=== PATIENT | male | born 2000 | race Caucasian/White ===

== ENCOUNTER 2020-05-14 01:59 | Emergency (ER) | payer OTHER, SELFPAY ==
--- NOTE | ~2020-05-14 | CT_ITS ---
EXAMINATION: CTA chest PE protocol DATE: 05/14/2020 05:33 INDICATION: Chest pain and shortness of breath TECHNIQUE: Computed tomography angiography (CTA) of the chest was performed with 100 mL Omnipaque-350 intravenous contrast timed to evaluate the pulmonary arteries. Coronal maximum intensity projection 3D-reconstructions were created by the technologist. The dose-length product (DLP) was 1024.74 mGy-cm . Automated exposure control and iterative reconstruction technique were employed. COMPARISON: None. FINDINGS: The pulmonary arteries are well-opacified. There is limited evaluation of the pulmonary art eries in the lower lung zones due to respiratory motion artifact. No pulmonary embolism is identified . The lungs are free of acute opacities. There is no pleural effusion or pneumothorax. No pathologica lly enlarged thoracic lymph nodes are identified. The heart size is normal. An azygos fissure is note d. Bilateral gynecomastia is noted. Triangular soft tissue density in the anterior mediastinum is con sistent with residual thymus. IMPRESSION: 1. No pulmonary embolism or acute cardiopulmonary abnormality. Reviewed, dictated and finalized at location A.
--- NOTE | ~2020-05-14 | XR_ITS ---
EXAMINATION: XR chest 1V portable INDICATION: Cough and shortness of breath TECHNIQUE: Portable AP chest at 0 to 37 hours COMPARISON: 05/28/2019 FINDINGS: The lungs are free of acute opacities. There is no pleural effusion or pneumothorax. The ca rdiomediastinal silhouette is normal. IMPRESSION: 1. No acute cardiopulmonary abnormality. Reviewed, dictated and finalized at location A.
--- NOTE | 2020-05-14 02:05 | ECG_ITS ---
Measurements Intervals [place] Rate: 131 P: 43 [place]: 137 QRS: 76 QRSD: 95 T: 15 QT: 309 QTc: 457 Interpretive Statements SINUS TACHYCARDIA NONSPECIFIC T-WAVE ABNORMALITY- INFERIOR LEADS ABNORMAL ECG Electronically Signed On 05-14-2020 7:12:57 CDT by Miky Antonio D.O.
[2020-05-14 02:06] VITALS: BP 123/81; PULSE 132; RESP 20; TEMP 36.8; O2SAT 99
[2020-05-14 02:09] VITALS: O2SAT 99
[2020-05-14 02:23] LABS: Basophils Absolute Auto 0.1 K/mm3 (0.0-0.1); Basophils Percent Auto 0.6 % (0.2-1.2); Eosinophils Absolute Auto 0.2 K/mm3 (0-0.3); Eosinophils Percent Auto 1.5 % (0-4.4); Hematocrit 47.1 % (42.0-52.0); Hemoglobin 16.6 g/dL (14.0-18.0); Immature Granulocyte Absolute 0.03 K/mm3 (0.00-0.031); Immature Granulocyte Percent A 0.3 % (0-0.5); Lymphocytes Absolute Auto 2.77 K/mm3 (0.9-3.2); Lymphocytes Percent Auto 27.5 % (18.3-44.2); Mean Corpuscular HGB Conc 35.2 g/dl (32-36); Mean Corpuscular Hemoglobin 29.5 pg (26-34); Mean Corpuscular Volume 83.8 fl (80-100); Mean Platelet Volume 10.4 fl (7.4-10.4); Monocytes Absolute Auto 0.7 K/mm3 (0.1-0.6); Monocytes Percent Auto 7.1 % (2.6-8.5); Neutrophils Absolute Auto 6.4 K/mm3 (1.3-6.7); Platelet Count Result 232 k/mm3 (150-375); Red Blood Count 5.62 M/mm3 (4.6-6.20); Red Cell Distribution Width 12.7 % (11.5-14.5); White Blood Count 10.1 K/mm3 (4.5-10.0)
[2020-05-14 02:34] LABS: Anion Gap 10 mmol/L (8-16); Blood Urea Nitrogen 15 mg/dL (9-20); Calcium 9.3 mg/dL (8.4-10.2); Carbon Dioxide 24 mmol/L (22-30); Chloride 104 mmol/L (98-107); Estimated CRCL calculation 175 ml/min; Estimated Glomerular Filt Rate > 60; Glucose 132 mg/dL (75-110); Potassium 3.7 mmol/L (3.4-5.0); Sodium 138 mmol/L (137-145)
[2020-05-14 03:21] VITALS: BP 115/85; PULSE 89; RESP 19; O2SAT 98
[2020-05-14 04:55] VITALS: BP 112/64; PULSE 90; RESP 19; O2SAT 98
--- NOTE | 2020-05-14 05:13 | ED.SOB ---
HPI - SOB/Dyspnea General Chief Complaint: Shortness of Breath/Dyspnea Stated Complaint: cp Time Seen by Provider: 05/14/20 03:02 History of Present Illness HPI Narrative: Patient is a 20-year-old male who presents ER with chest pain or shortness of breath. Shortness of breath sudden onset this evening. Tachycardic upon arrival. Central chest discomfort that is worse with palpation. No new swelling in his legs. No hemoptysis. No family history of PE. Patient is had no runny nose/sore throat/productive cough. He last saw his father about 2 weeks ago and his father tested positive for COVID 1 week ago. Outside of that he said no additional sick contacts. No fevers or chills or sweats. Related Data Allergies Allergy/AdvReac Type Severity Reaction Status Date / Time No Known Allergies Allergy Unknown Verified 04/29/05 18:06 Review of Systems Review of Systems: All systems reviewed & are unremarkable except as noted in HPI and below Constitutional: Constitutional: Denies chills, Denies fever(s) and Denies weakness ENT: Denies nasal congestion and Denies sore throat Cardiovascular: Cardiovascular: Reports chest pain and Denies radiating jaw, neck or arm pain Respiratory: Respiratory: Denies cough, Reports dyspnea and Denies wheezing Gastrointestinal: Gastrointestinal: Denies abdominal pain, Denies diarrhea, Denies nausea and Denies vomiting Musculoskeletal: Musculoskeletal: Denies muscle cramps PMFSH Past Medical History Medical History (Updated 05/14/20 @ 06:24 by Lionel Light MD) Chronic mental illness Surgical History Surgical History (Updated 05/14/20 @ 05:36 by Lionel Light MD) No history of previous surgery Social History Social History (Updated 05/14/20 @ 05:36 by Lionel Light MD) Smoking status: Never smoker Gender identity (if verbalized by the patient): Male Exam Narrative: Exam Narrative: GENERAL: Well-appearing, morbidly obese, and in no acute distress. HEAD: Normocephalic, atraumatic. ENT: Mucous membranes moist. CHEST: Clear to auscultation. No respiratory distress. Tender palpation anterior chest wall over the sternum. HEART: Tachycardic and regular. Normal peripheral pulses. ABDOMEN: Soft, nontender, nondistended. EXTREMITIES: Normal range of motion. No edema. SKIN: Warm, dry, no rash. NEURO: Alert and oriented x3. Course Course Emergency Course: Patient feels much better. Chest pain is gone down with the Toradol. Discharge home. Vital Signs Vital signs: Vital Signs Temperature 98.3 F 05/14/20 02:06 Pulse Rate 132 H 05/14/20 02:06 Respiratory Rate 20 05/14/20 02:06 Blood Pressure 123/81 05/14/20 02:06 Pulse Oximetry 99 05/14/20 02:06 Temperature 98.3 F 05/14/20 02:06 Pulse Rate 90 05/14/20 05:45 Respiratory Rate 19 05/14/20 05:45 Blood Pressure 127/62 05/14/20 05:45 Pulse Oximetry 95 05/14/20 05:45 MDM - SOB/Dyspnea Lab Data Result diagrams: 05/14/20 02:17 05/14/20 02:17 Labs: Lab Results 05/14/20 05/14/20 Range/Units 02:17 02:17 WBC 10.1 H (4.5-10.0) K/mm3 RBC 5.62 (4.6-6.20) M/mm3 Hgb 16.6 (14.0-18.0) g/dL Hct 47.1 (42.0-52.0) % MCV 83.8 (80-100) fl MCH 29.5 (26-34) pg MCHC 35.2 (32-36) g/dl RDW 12.7 (11.5-14.5) % Plt Count 232 (150-375) k/mm3 MPV 10.4 (7.4-10.4) fl Immature Gran % (Auto) 0.3 (0-0.5) % Neut % (Auto) 63.0 (45.5-73.1) % Lymph % (Auto) 27.5 (18.3-44.2) % [place] % (Auto) 7.1 (2.6-8.5) % Eos % (Auto) 1.5 (0-4.4) % Baso % (Auto) 0.6 (0.2-1.2) % Lymph # (Auto) 2.77 (0.9-3.2) K/mm3 [place] # (Auto) 0.7 H (0.1-0.6) K/mm3 Eos # (Auto) 0.2 (0-0.3) K/mm3 Baso # (Auto) 0.1 (0.0-0.1) K/mm3 Abs Immat Gran (auto) 0.03 (0.00-0.031) K/mm3 Absolute Neuts (auto) 6.4 (1.3-6.7) K/mm3 Absolute Nucleated RBC 0.0 (0.0-0.012) K/mm3 Nucleated RBC % 0.0 (0.0-0.2) % Sodium 138 (137-
[2020-05-14] MEDS: KETOROLAC 30 MG/ML VIAL (*BKC) IV PUSH (05:27)
[2020-05-14 05:45] VITALS: BP 127/62; PULSE 90; RESP 19; O2SAT 95
[2020-05-14 06:28] VITALS: BP 139/84; PULSE 86; RESP 19; TEMP 36.8; O2SAT 98
== END 2020-05-14 06:29 | disposition home or self-care (01) ==
PROVIDERS: Emergency Provider Emergency Medicine
DX: R07.89 Other chest pain (principal); R00.0 Tachycardia, unspecified; R94.31 Abnormal electrocardiogram [ECG] [EKG]
CPT/HCPCS: 36415; 71045; 71275; 80048; 85025; 93005; 96374; 99284; J1885; Q9967

== ENCOUNTER 2021-09-30 15:56 | Emergency (ER) | payer OTHER, SELFPAY ==
--- NOTE | ~2021-09-30 | CT_ITS ---
EXAMINATION: CT abdomen pelvis w con DATE: 09/30/2021 19:28 INDICATION: Abdominal pain. Left flank pain. TECHNIQUE: Computed tomography (CT) of the abdomen and pelvis was performed with 100 mL Omnipaque 350 intravenous contrast. Automated exposure control and iterative reconstruction technique were employe d. The dose-length product was 1618.21 mGy-cm. COMPARISON: Chest CT 05/14/2020 FINDINGS: The visualized portions of the lung bases are clear without pneumonia or pleural effusion. The heart size is normal. No pericardial effusion. The liver, gallbladder, spleen, pancreas, adrenal glands, and kidneys are normal. There are no dilated loops of bowel. The appendix is normal. There ar e no pathologically enlarged lymph nodes. There is no free intraperitoneal fluid. There is mild chron ic anterior wedging of multiple thoracic vertebral bodies. There is mild thoracic spondylosis. IMPRESSION: 1. No etiology for the patient's symptoms. Reviewed, dictated and finalized at location A. CTOR OF PRIMARY
[2021-09-30 16:08] VITALS: BP 147/95; PULSE 101; RESP 19; TEMP 37.2; O2SAT 99
[2021-09-30] MEDS: KETOROLAC 30 MG/ML VIAL (*BKC) IV PUSH (18:48)
[2021-09-30] MEDS: SODIUM CHLORIDE 0.9% IV 1,000 ML 999 ML IV CONT (18:48)
[2021-09-30 18:54] LABS: Basophils Absolute Auto 0.1 K/mm3 (0.0-0.1); Basophils Percent Auto 0.6 % (0.2-1.2); Eosinophils Absolute Auto 0.2 K/mm3 (0-0.3); Eosinophils Percent Auto 1.6 % (0-4.4); Hematocrit 49.6 % (42.0-52.0); Hemoglobin 16.8 g/dL (14.0-18.0); Immature Granulocyte Absolute 0.04 K/mm3 (0.00-0.031); Immature Granulocyte Percent A 0.3 % (0-0.5); Lymphocytes Absolute Auto 3.49 K/mm3 (0.9-3.2); Lymphocytes Percent Auto 29.3 % (18.3-44.2); Mean Corpuscular HGB Conc 33.9 g/dl (32-36); Mean Corpuscular Hemoglobin 29.4 pg (26-34); Mean Corpuscular Volume 86.7 fl (80-100); Mean Platelet Volume 10.3 fl (7.4-10.4); Monocytes Absolute Auto 0.8 K/mm3 (0.1-0.6); Monocytes Percent Auto 6.7 % (2.6-8.5); Neutrophils Absolute Auto 7.3 K/mm3 (1.3-6.7); Neutrophils Percent Auto 61.5 % (45.5-73.1); Platelet Count Result 269 k/mm3 (150-375); Red Blood Count 5.72 M/mm3 (4.6-6.20); Red Cell Distribution Width 13.2 % (11.5-14.5); White Blood Count 11.9 K/mm3 (4.5-10.0)
[2021-09-30 18:59] LABS: Add Urine Microscopic? YES; Appearance Urine Clear (Clear); Bilirubin Urine Negative (Negative); Blood Urine Negative (Negative); Color Urine Yellow (Yellow); Glucose Urine UA Negative (Negative); Ketones Urine Negative (Negative); Leukocyte Esterase Ur 1+ LEU/UL (Negative); Mucus Urine Rare /lpf; Nitrate Urine Negative (Negative); Protein Urine Negative (Negative); RBC Urine 0-2 /hpf (0-2); Specific Grav Ur 1.025 (1.001-1.035); Urobilinogen Urine Negative mg/dL (<2.0); WBC Urine 0-3 /hpf
[2021-09-30 19:03] LABS: Alanine Aminotransferase 52 U/L (4-50); Albumin Level 4.9 g/dL (3.5-5.1); Alkaline Phosphatase 89 U/L (38-126); Anion Gap 12 mmol/L (8-16); Aspartate Amino Transferase 36 U/L (17-59); Bilirubin,Total 0.4 mg/dL (0.2-1.3); Blood Urea Nitrogen 15 mg/dL (9-20); Calcium 9.6 mg/dL (8.4-10.2); Carbon Dioxide 26 mmol/L (22-30); Chloride 102 mmol/L (98-107); Estimated Glomerular Filt Rate > 60; Glucose 86 mg/dL (65-110); Potassium 4.2 mmol/L (3.4-5.0); Sodium 140 mmol/L (137-145)
[2021-09-30 19:24] LABS: Lipase 73 U/L (23-300)
--- NOTE | 2021-09-30 19:27 | PC.NURSE ---
Pt to CT scan via stretcher at this time. Fluids infusing.
--- NOTE | 2021-09-30 19:42 | ED.GENADULT ---
HPI - General Adult General Chief complaint: Urogenital-Male Stated complaint: blood in urine, flank pain. Time Seen by Provider: 09/30/21 18:28 Source: RN notes reviewed History of Present Illness HPI narrative: Patient presents emergency department from home for flank pain and hematuria. Patient states for the past 2 days he has been having pain in his left flank states that the pain is just the left of his back and is worse when he bends over or lift heavy objects or moves things with his left arm he denies any direct trauma or injury to his back. States he is not taking medication for the symptoms he states that earlier today he had an episode of hematuria he states he went to the restroom and had blood in his urine states he had a similar episode before in the past approximately a year ago but is never been evaluated he denies any fevers or chills chest pain shortness of breath states that his flank pain does radiate around to his upper abdomen at times he denies any nausea vomiting diarrhea. Patient denies being sexually active Related Data Home Medications Medication Instructions Recorded Confirmed lamotrigine 09/30/21 09/30/21 quetiapine 09/30/21 Allergies Allergy/AdvReac Type Severity Reaction Status Date / Time Penicillins Allergy Swelling Verified 09/30/21 16:14 of Lip/Tongue/Throat Review of Systems Review of Systems: Gen.: Denies fevers or chills ENT: Denies congestion Respiratory: Denies shortness of breath or cough CV: Denies chest pain or palpitations GI: Denies abdominal pain nausea, emesis or diarrhea see HPI Musculoskeletal: Reports left flank pain Neuro: Denies numbness, tingling, weakness or focal weakness Skin: Denies rash Except as documented, all other systems reviewed and negative [facility] Past Medical History Medical History Chronic mental illness Surgical History Surgical History (Updated 07/07/20 @ 10:41 by Tanner Linda) No history of previous surgery Social History Social History Smoking status: Never smoker Gender identity (if verbalized by the patient): Male Exam Narrative: APPEARANCE: No acute distress, nontoxic, resting in bed EYES: EOMI HEENT: Normocephalic, atraumatic, OMM RESPIRATORY: No respiratory distress Clear to auscultation bilaterally with no rhonchi wheezing or rales. CARDIOVASCULAR: Regular rate and rhythm without murmurs rubs or gallops. ABDOMINAL: Soft, nontender, nondistended, no rebound or guarding MUSCULOSKELETAl: Moves all extremities. No clubbing, cyanosis or edema. Back: No midline thoracic lumbar tenderness palpation tender palpation over left paravertebral muscles T12-L2 pain worse with bending and rotation of the torso NEURO: Awake and alert. Following commands, speech normal, no focal deficits SKIN:: Warm, dry. No rashes lesions or abrasions PSYCHIATRIC: Normal affect/mood, Course Course Emergency Course: Discussed with patient results of workup and diagnosis. Discussed need for follow-up with primary care, proper use of medication, and reasons to return to the emergency department. Patient understands and agrees to current treatment plan Vital Signs Vital signs: Vital Signs Temperature 99.0 F 09/30/21 16:08 Pulse Rate 101 H 09/30/21 16:08 Respiratory Rate 09/30/21 16:08 Blood Pressure 147/95 H 09/30/21 16:08 Pulse Oximetry 99 09/30/21 16:08 Temperature 99.0 F 09/30/21 16:08 Pulse Rate 101 H 09/30/21 16:08 Respiratory Rate 09/30/21 16:08 Blood Pressure 147/95 H 09/30/21 16:08 Pulse Oximetry 99 09/30/21 16:08 Medical Decision Making [facility] Narrative Medical decision making narrative: Patient presents for left flank pain worse with movement and activity as well as hematuria with a similar episode approximately a year ago believe these are 2 separate issues flank pain is more musculo
[2021-09-30 20:43] VITALS: BP 133/89; PULSE 89; RESP 15; O2SAT 100
== END 2021-09-30 20:44 | disposition home or self-care (01) ==
PROVIDERS: Emergency Provider Emergency Medicine
DX: R31.9 Hematuria, unspecified (principal); R10.9 Unspecified abdominal pain
CPT/HCPCS: 36415; 74177; 80053; 81001; 83690; 85025; 87086; 96361; 96374; 99284; J1885; J7030; Q9967

== ENCOUNTER 2022-03-19 02:13 | Emergency (ER) | payer OTHER, SELFPAY ==
[2022-03-19] VITALS (20 sets, daily range): BP systolic 107–157; BP diastolic 64–87; PULSE 78–135; RESP 17–26; TEMP 36.6; O2SAT 96–98
--- NOTE | ~2022-03-19 | XR_ITS ---
EXAMINATION: XR chest 1V portable INDICATION: Left-sided chest pain TECHNIQUE: Portable AP chest at 0226 hours COMPARISON: 05/14/2020 FINDINGS: The lungs are free of acute opacities. No pleural effusion or pneumothorax. The cardiomedia stinal silhouette is normal. The visualized bones and soft tissues are unremarkable. IMPRESSION: 1. No acute cardiopulmonary abnormality. Reviewed, dictated and finalized at location B.
--- NOTE | ~2022-03-19 | CT_ITS ---
EXAMINATION: CT abdomen pelvis w con DATE: 03/19/2022 04:31 INDICATION: Upper abdominal pain TECHNIQUE: Computed tomography (CT) of the abdomen and pelvis was performed without intravenous contr ast. The dose-length product was 1818.08 mGy-cm. Automated exposure control and iterative reconstruct ion technique were employed. COMPARISON: CT dated 09/30/2021. FINDINGS: Lung bases unremarkable. Heart size normal. There is bilateral gynecomastia. No significant pleural or pericardial effusion. No significant vascular abnormality. No lymphadenopathy. The liver, spleen, pancreas, adrenal glands and kidneys are unremarkable. Gallbladder is present. Nonobstructiv e bowel pattern. No free air or free fluid. Nonobstructive bowel gas pattern. Normal appendix. No free air or free fluid. Mild lower thoracic spo ndylosis. No acute osseous abnormality. IMPRESSION: 1. No acute abdominal abnormality. Reviewed, dictated and finalized at location L.
--- NOTE | 2022-03-19 02:17 | ECG_ITS ---
Measurements Intervals [place] Rate: 131 P: 32 WV: 145 QRS: -37 QRSD: 97 T: 50 QT: 307 QTc: 455 Interpretive Statements SINUS TACHYCARDIA LEFT AXIS DEVIATION BORDERLINE R WAVE PROGRESSION, ANTERIOR LEADS BASELINE ARTIFACT- V1, V4-V6 ABNORMAL ECG Electronically Signed On 03-19-2022 6:36:14 CDT by Miky Antonio D.O.
--- NOTE | 2022-03-19 02:24 | ED.CHESTPAIN ---
HPI - Chest Pain General Chief Complaint: Chest Pain Stated Complaint: CHEST PAIN Source: RN notes reviewed History of Present Illness HPI narrative: Patient presents emergency department from home via EMS for chest pain. Patient states symptoms began approximately 1 hour ago states he was laying down in bed to go to sleep when he began to feel funny feeling in his chest. He states that this was followed by midsternal left-sided chest pain described as sharp and stabbing radiates up into his neck as well as a feeling of shortness of breath. He denies any fevers or chills abdominal pain nausea vomiting or any other symptoms states did not take anything for the symptoms Related Data Home Medications Medication Instructions Recorded Confirmed lamotrigine 100 mg tablet 09/30/21 09/30/21 quetiapine 300 mg tablet 09/30/21 Allergies Allergy/AdvReac Type Severity Reaction Status Date / Time Penicillins Allergy Swelling Verified 09/30/21 16:14 of Lip/Tongue/Throat Review of Systems Review of Systems: Gen.: Denies fevers or chills ENT: Denies congestion Respiratory: Reports shortness of breath CV: See HPI GI: Denies abdominal pain nausea, emesis or diarrhea Musculoskeletal: Denies back pain or muscle pain Neuro: Denies numbness, tingling, weakness or focal weakness Skin: Denies rash Except as documented, all other systems reviewed and negative [facility] Past Medical History Medical History Chronic mental illness Surgical History Surgical History (Updated 07/07/20 @ 10:41 by Tanner Linda) No history of previous surgery Social History Social History Smoking status: Never smoker Gender identity (if verbalized by the patient): Male Exam Narrative: APPEARANCE: No acute distress, nontoxic, resting in bed HEENT: Normocephalic, atraumatic, OMM RESPIRATORY: No respiratory distress, clear to auscultation bilaterally with no rhonchi wheezing or rales CARDIOVASCULAR: RRR s murmur Chest: Tender to palpation left anterior chest wall just to the left of the sternum and regions of ribs 8 and 9 point tenderness present no overlying erythema or ecchymosis ABDOMINAL: Soft nondistended tender palpation epigastric, right upper quadrant left upper quadrant no tenderness right lower quadrant left lower quadrant no rebound or guarding MUSCULOSKELETAl: Moves all extremities. No clubbing, cyanosis or edema. NEURO: Awake and alert. Following commands, speech normal, no focal deficits SKIN:: Warm, dry. Normal Color PSYCHIATRIC: Normal affect/mood Course Course Emergency Course: Patient states chest pain is resolved at this time. Repeat abdominal exam soft nontender Discussed with Dr. Brown presentation requires plan for discharge Discussed with patient results of workup and diagnosis. Discussed need for follow-up with primary care, proper use of medication, and reasons to return to the emergency department. Patient understands and agrees to current treatment plan Vital Signs Vital signs: Vital Signs Temperature 97.8 F 03/19/22 02:11 Pulse Rate 135 H 03/19/22 02:11 Respiratory Rate 26 H 03/19/22 02:11 Blood Pressure 136/83 03/19/22 02:11 Pulse Oximetry 96 03/19/22 02:11 Oxygen Delivery Room Air 03/19/22 02:11 Temperature 97.8 F 03/19/22 02:11 Pulse Rate 80 03/19/22 05:45 Respiratory Rate 21 H 03/19/22 05:15 Blood Pressure 107/68 03/19/22 05:15 Pulse Oximetry 98 03/19/22 05:15 Oxygen Delivery Room Air 03/19/22 02:11 MDM - Chest Pain MDM Narrative Medical decision making narrative: Patient's EKGs and labs are without significant high risk changes. Cardiac risk factors reviewed. Patient is felt likely low risk for ACS and reasonable for further risk stratification testing as an outpatient. Pain was not sudden or maximal in onset without tearing or ripping kimberlyn
[2022-03-19 02:46] LABS: Basophils Absolute Auto 0.1 K/mm3 (0.0-0.1); Basophils Percent Auto 0.5 % (0.2-1.2); Eosinophils Absolute Auto 0.2 K/mm3 (0-0.3); Eosinophils Percent Auto 1.8 % (0-4.4); Hematocrit 45.3 % (42.0-52.0); Immature Granulocyte Absolute 0.03 K/mm3 (0.00-0.031); Immature Granulocyte Percent A 0.3 % (0-0.5); Lymphocytes Absolute Auto 3.79 K/mm3 (0.9-3.2); Lymphocytes Percent Auto 37.3 % (18.3-44.2); Mean Corpuscular HGB Conc 35.3 g/dl (32-36); Mean Corpuscular Hemoglobin 29.6 pg (26-34); Mean Corpuscular Volume 83.9 fl (80-100); Mean Platelet Volume 10.5 fl (7.4-10.4); Monocytes Absolute Auto 0.6 K/mm3 (0.1-0.6); Monocytes Percent Auto 6.1 % (2.6-8.5); Neutrophils Absolute Auto 5.5 K/mm3 (1.3-6.7); Platelet Count Result 238 k/mm3 (150-375); Red Cell Distribution Width 12.9 % (11.5-14.5); White Blood Count 10.2 K/mm3 (4.5-10.0)
[2022-03-19 02:57] LABS: Prothrombin Time 13.1 Seconds (11.1-14.7)
[2022-03-19 02:58] LABS: Partial Thromboplastin Time 29.3 SECONDS (22.3-36.8)
[2022-03-19 03:01] LABS: Alanine Aminotransferase 56 U/L (6-50); Albumin Level 4.3 g/dL (3.5-5.1); Alkaline Phosphatase 70 U/L (38-126); Anion Gap 9 mmol/L (8-16); Aspartate Amino Transferase 31 U/L (17-59); Bilirubin,Total 0.3 mg/dL (0.2-1.3); Blood Urea Nitrogen 19 mg/dL (9-20); Carbon Dioxide 25 mmol/L (22-30); Chloride 104 mmol/L (98-107); Estimated CRCL calculation 160 ml/min; Estimated Glomerular Filt Rate > 60; Glucose 124 mg/dL (65-110); Lipase 88 U/L (23-300); Potassium 3.7 mmol/L (3.4-5.0); Sodium 138 mmol/L (137-145)
[2022-03-19] MEDS: SODIUM CHLORIDE 0.9% IV 1,000 ML 999 ML IV CONT (03:03)
[2022-03-19 03:11] LABS: Troponin I < 0.012 ng/mL (0.000-0.034)
[2022-03-19 03:44] LABS: D Dimer < 0.22 ug/mL (<0.48)
[2022-03-19 06:09] LABS: Troponin I 0.018 ng/mL (0.000-0.034)
--- NOTE | 2022-03-19 06:13 | ECG_ITS ---
Measurements Intervals [place] Rate: 75 P: 53 HI: 155 QRS: 26 QRSD: 129 T: 22 QT: 376 QTc: 422 Interpretive Statements SINUS RHYTHM WITH MARKED SINUS ARRHYTHMIA INTRAVENTRICULAR CONDUCTION DELAY BORDERLINE ECG Electronically Signed On 03-19-2022 6:38:59 CDT by Miky Antonio D.O.
--- NOTE | 2022-03-19 07:20 | PC.NURSE ---
Patient report received from USAMA Chavez. All questions answered and care of patient assumed.
[2022-03-19] MEDS: KETOROLAC 30 MG/ML VIAL (*BKC) IV PUSH (07:30)
== END 2022-03-19 07:56 | disposition home or self-care (01) ==
PROVIDERS: Emergency Provider Emergency Medicine
DX: R07.89 Other chest pain (principal); R10.13 Epigastric pain; F99 Mental disorder, not otherwise specified; R00.0 Tachycardia, unspecified; I45.9 Conduction disorder, unspecified
CPT/HCPCS: 36415; 71045; 74177; 80053; 83690; 84484; 85025; 85380; 85610; 85730; 93005; 96361; 96374; 99284; A9270; J1885; J7030; Q9967

== ENCOUNTER 2025-04-16 12:31 | Day surgery (SDC) | payer OTHER, SELFPAY ==
[2025-04-16] VITALS (33 sets, daily range): BP systolic 114–151; BP diastolic 52–114; PULSE 70–92; RESP 8–49; TEMP 36.4–36.7; O2SAT 95–100
--- NOTE | ~2025-04-16 | CT_ITS ---
EXAMINATION: CT abdomen pelvis w con DATE: 04/16/2025 14:05 INDICATION: Abdominal pain. Bleeding in urine. TECHNIQUE: Computed tomography (CT) of the abdomen and pelvis was performed with 100 mL Omnipaque-350 intravenous contrast. Automated exposure control and iterative reconstruction technique were employe d. The dose-length product was 1610.62 mGy-cm. COMPARISON: 03/19/2022 FINDINGS: Lower lungs are clear. Heart size is normal. No pericardial or pleural effusion. Liver, gallbladder, spleen, pancreas, bilateral adrenal glands and kidneys are normal. No evident urolithiasis. The dista l half the appendix is fluid-filled and mildly dilated to 8 mm. There is minimal stranding surroundin g the distal appendix. Findings raise some suspicion for early acute appendicitis. Bowels are otherwi se unremarkable. Bladder is normal. No free intraperitoneal gas or fluid. No pathologically enlarged abdominal or pelvic lymphadenopathy. Mild lower thoracic spondylosis with chronic mild anterior wedgi ng at T7-T12 consistent with Scheuermann's disease. IMPRESSION: 1. Subtle stranding about the fluid-filled distal appendix which is mildly dilated to 8 mm raising so me concern for early acute appendicitis. Dr. Magana discussed these findings with Dr. Heller at 4 :08 PM. Reviewed, dictated and finalized at location A. IMPRESSION: 1. Subtle stranding about the fluid-filled distal appendix which is mildly dila es to 8 mm raising some concern for early acute appendicitis. Dr. Magana dis cussed these findings with Dr. Heller at 4:08 PM.
--- OUTSIDE RECORDS SUMMARY | 2025-04-16 12:35 | XMS_ITS | Clinical Summary ---
Author Organization [facility] Address [address] [place] [address] Care Team Providers Care Provider Scribe Name Role Phone Esther Bey MD Primary Care Provider [phone] Source Comments [facility],non-owned Affiliates and Associated Physician Practices is amultiple site organization consisting of ambulatory clinics and hospital sitesin [place], [place], [place] and [place]. This disclosure is being madepursuant to the Care Everywhere program and may not contain all information available regarding this patient. 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 Gender Identity Not on file Sexual Orientation Not on file Plan of Treatment Health Maintenance Due Date Last Done Comments HIV SCREENING 2013 HPV VACCINE (1 - Male 3-dose series) 2013 HEPATITIS C SCREENING 04/14/2016 DTAP/TDAP/TD VACCINES (1 - Tdap) 2017 HEPATITIS B VACCINE (1 of 3 - 19+ 3-dose series) 2017 COVID-19 VACCINE (1 - 2023-2 5 season) 2024 DEPRESSION SCREENING 09/12/2024 INFLUENZA VACCINE (#1) 2025 ZOSTER VACCINE (1 of 2) 2048 HIB VACCINE Aged Out No longer eligi ble based on patient's age to complete this topic MENINGOCOCCAL (Group B) VACC INE SHARED DECISION-MAKING Aged Out No longer eligibl e based on patient's age to complete this topic MENINGOCOCCAL GROUPS A/C/Y/W VACCINE Aged Out No longer eligible b ased on patient's age to complete this topic PNEUMOCOCCAL VACCINE Aged Out No long er eligible based on patient's age to complete this topic Care Teams Provider Scribe Relationship Specialty Start Date End Date Esther eBy MD [address] [place] [address] PCP - General 09/22/10
--- OUTSIDE RECORDS SUMMARY | 2025-04-16 12:35 | XMS_ITS | Clinical Summary ---
Author Organization [facility] Address [address] [place] [address] Phone Care Team Providers Care Pollution Control Technician Name Role Phone Provider, None Primary Care Provider Unavailabl e Allergies Active Allergy Reactions Criticality Noted Date Comments Penicillins Anaphylaxis 01/16/2017 Medications divalproex (DEPAKOTE) 500 MG Tablet Delayed Response Take 1,500 mg by mouth nightly. Active QUEtiapine Fumarate (SEROQUEL) 400 MG Tablet Take 600 mg by mouth nightly. Active atorvastatin (LIPITOR) 10 MG Tablet Take 10 mg by mouth daily. Active Social History Tobacco Use Types Packs/Day Years Used Date Smoking Tobacco: Never Sex and Gender Information Value Date Recorded Sex Assigned at Not on file Legal Sex Male 12:09 AM CDT Gender Identity Not on file Sexual Orientation Not on file Last Filed Vital Signs Vital Sign Reading Time Taken Comments Blood Pressure 156/107 11/01/2020 3:24 PM VIDEO GAME TESTER Pulse 121 11/01/2020 3:23 PM VIDEO GAME TESTER Temperature 36.9 C (98.4 F) 11/01/2020 3:23 PM VIDEO GAME TESTER Respiratory Rate 20 11/01/2020 3:23 PM VIDEO GAME TESTER Oxygen Saturation 95% 11/01/2020 3:23 PM VIDEO GAME TESTER Inhaled Oxygen Concentration - - Weight 124.7 kg (275 lb) 01/16/2017 9:47 AM CDT Height 177.8 cm (5' 10) 01/16/2017 9:47 AM CDT Body Mass Index 39.46 01/16/2017 9:47 AM CDT Plan of Treatment Health Maintenance Due Date Last Done Comments Hepatitis C Virus (HCV) Screening 1998 TdaP Immunization 1998 Human Papillomavirus (HPV) Immunization (1 - Male 3-dose series) 2013 SARS-COV-2 Immunization ( - 2023- season) 2024 Influenza Immunization (#1) 2025 Respiratory Syncytial Virus (RSV) Immunization (Adult) (1 - 1-dose 75+ series) 2073 Hepatitis B Immunization Completed 000, 1998, 1998 DTaP/Tdap/Td Immunization Discontinued 2002, 10/14/1999, 1998, Additional history exists Meningococcal Immunization (ACWY) Aged Out No longer eligible based on patient's age to complete this topic Pneumococcal Immunization Combined Aged Out No longer eligible based on patient's age to complete this topic Rotavirus Immunization Aged Out No lo nger eligible based on patient's age to complete this topic Insurance on file [place] Member Subscriber Plan / Payer (Ef fective 2017-Present) Name:Gareth Lopez Relation to Subscriber:Self Name:Gareth Lopez Payer ID:[id number] Group ID:Not on file Type:Not on file Address: [place] [id number] [place] Care Teams Pollution Control Technician Relationship Specialty Start Date End Date Provider, None [place] PCP - General 01/16/17
--- OUTSIDE RECORDS SUMMARY | 2025-04-16 13:15 | XMS_ITS | Clinical Summary ---
Author Organization [facility] Address [address] [address] Care Team Providers Care Field Care Coordinator Name Role Phone Esther Bey MD Primary Care Provider [phone] Source Comments [facility],non-owned Affiliates and Associated Physician Practices is amultiple site organization consisting of ambulatory clinics and hospital sitesin [place], [place], [place] and [place]. This disclosure is being madepursuant to the Care Everywhere program and may not contain all information available regarding this patient. 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
--- OUTSIDE RECORDS SUMMARY | 2025-04-16 13:15 | XMS_ITS | Clinical Summary ---
Author Organization [facility] Address [address] [place] [address] Phone Care Team Providers Care Log Feeder Name Role Phone Provider, None Primary Care [...] Comments Blood Pressure 156/107 11/01/2020 3:24 PM CORSETIER Pulse 121 11/01/2020 3:23 PM COR[place] Temperature 36.9 C (98.4 F) 11/01/2020 3:23 PM COR[place]IER Respiratory Rate 20 11/01/2020 3:23 PM CORSETIER Oxygen Saturation 95% 11/01/2020 3:23 PM CORSETIER Inhaled Oxygen Concentration - - Weight 124.7 [...] ID:Not on file Type:Not on file Address: [place] [id number] [place] Care Teams Log Feeder Relationship Specialty Start Date End Date Provider, None [place] PCP - General 01/16/17
[2025-04-16] MEDS: MORPHINE SULFATE (*CRX) 4 MG/ML INJ IV PUSH (13:50)
[2025-04-16] MEDS: ONDANSETRON INJ 4 MG/2 ML VIAL IV PUSH (13:50)
[2025-04-16 13:59] LABS: Hematocrit 46.9 % (42.0-52.0); Hemoglobin 16.1 g/dL (14.0-18.0); Immature Granulocyte Percent A 0.3 % (0-0.5); Lymphocytes Absolute Auto 2.85 K/mm3 (0.9-3.2); Mean Corpuscular HGB Conc 34.3 g/dl (32-36); Mean Corpuscular Hemoglobin 29.3 pg (26-34); Mean Corpuscular Volume 85.4 fl (80-100); Nucleated Red Blood Cells Absolute Auto 0.000 K/mm3 (0.0-0.012); Nucleated Red Blood Cells Perc 0.0 % (0.0-0.2); Platelet Count Result 269 k/mm3 (150-375); Red Blood Count 5.49 M/mm3 (4.6-6.20); White Blood Count 19.0 K/mm3 (4.5-10.0)
[2025-04-16 13:59] LABS: Estimated CRCL calculation 121 ml/min; Estimated Glomerular Filt Rate > 60
[2025-04-16 14:16] LABS: Alanine Aminotransferase 63 U/L (6-50); Albumin Level 4.6 g/dL (3.5-5.1); Alkaline Phosphatase 78 U/L (38-126); Anion Gap 9 mmol/L (4-12); Aspartate Amino Transferase 42 U/L (17-59); Bilirubin,Total 0.5 mg/dL (0.2-1.3); Blood Urea Nitrogen 16 mg/dL (9-20); Calcium 9.3 mg/dL (8.4-10.2); Carbon Dioxide 22 mmol/L (22-30); Chloride 106 mmol/L (98-107); Estimated CRCL calculation 130 ml/min; Estimated Glomerular Filt Rate > 60; Glucose 110 mg/dL (65-110); Lipase 74 U/L (23-300); Potassium 3.9 mmol/L (3.4-5.0); Sodium 137 mmol/L (137-145); Total Protein 7.8 g/dL (6.3-8.2)
--- NOTE | 2025-04-16 15:53 | PC.NURSE ---
patient ambulated to the bathroom with a specimen cup to attempt to provide a urine sample at this time
[2025-04-16 16:08] LABS: Add Urine Microscopic? NO; Appearance Urine Clear (Clear); Glucose Urine UA Negative (Negative); Leukocyte Esterase Ur Negative LEU/UL (Negative); Nitrate Urine Negative (Negative); Specific Grav Ur > 1.045 (1.001-1.035)
--- NOTE | 2025-04-16 16:18 | ED.ABDPAIN ---
HPI - Abdominal Pain General Chief Complaint: Abdominal Pain Stated Complaint: hernia? Time Seen by Provider: 04/16/25 12:48 Source: patient Mode of arrival: ambulatory Limitations: no limitations History of Present Illness HPI narrative: 24-year-old with a history of bipolar disorder and autism was brought in by mother with a complains of sudden onset of lower abdominal pain started few minutes ago while he was lifting a heavy Fridge. He also stated that he had some blood in his urine. No history of fever chills. Related Data Home Medications ?Medication ?Instructions ?Recorded ?Confirmed ?Last Taken ?Type lamotrigine 100 mg tablet 09/30/21 09/30/21 Unknown History quetiapine 300 mg tablet 09/30/21 Unknown History Allergies Allergy/AdvReac Type Severity Reaction Status Date / Time Penicillins Allergy Swelling Verified 04/16/25 16:55 of Lip/Tongue/Throat Review of Systems Review of Systems: All systems reviewed & are unremarkable except as noted in HPI and below Constitutional: Constitutional: Reports no additional constitutional complaints Eyes: Eyes: Reports no additional eye complaints ENT: Reports system reviewed and no additional complaints, except as documented Cardiovascular: Cardiovascular: Reports no additional cardiovascular complaints Respiratory: Respiratory: Reports no additional respiratory complaints Gastrointestinal: Gastrointestinal: Reports as per HPI Musculoskeletal: Musculoskeletal: Reports no additional musculoskeletal complaints Neurologic: Reports system reviewed and no additional complaints, except as documented PMFSH Past Medical History Medical History Chronic mental illness Surgical History Surgical History No history of previous surgery Social History Social History Smoking status: Never smoker Gender identity (if verbalized by the patient): Male Exam Narrative: GENERAL: Well-appearing, well-nourished, and in no acute distress. HEAD: Normocephalic, atraumatic. EYES: PERRLA and EOMI. ENT: Nares clear, no rhinorrhea or epistaxis. Mucous membranes moist. NECK: Supple. CHEST: Clear to auscultation. No respiratory distress. HEART: Regular rate and rhythm. No murmur heard. Normal peripheral pulses. ABDOMEN: Soft, tender in the lower , nondistended, normal active bowel sounds. EXTREMITIES: Normal range of motion. No edema. SKIN: Warm, dry, no rash. NEURO: No focal deficits. Alert and oriented x3. PSYCH: Normal mood and affect. Course Course Emergency Course: Patient feeling better after IV morphine he is roaming around in the room , i did inform the pt and his mother about the lab and CT finding, Notified Dr. Negron. pt is sent to OR Vital Signs Vital signs: Vital Signs Temperature 36.4 C 04/16/25 12:43 Pulse Rate 87 04/16/25 12:43 Respiratory Rate 16 04/16/25 12:43 Blood Pressure 135/78 04/16/25 12:43 Pulse Oximetry 100 04/16/25 12:43 Temperature 36.6 C 04/16/25 16:48 Pulse Rate 70 04/16/25 16:48 Respiratory Rate 18 04/16/25 16:48 Blood Pressure 149/70 H 04/16/25 16:48 Pulse Oximetry 98 04/16/25 16:48 Oxygen Delivery Room Air 04/16/25 16:48 MDM - Abdominal Pain Differential Diagnosis Differential diagnosis: Likely abdominal pain, acute appendicitis, calculus of kidney and other (intra bdominal trauma) Medical Records Attestation: I reviewed the patient's medical records. Lab Data Attestation: I reviewed the patient's lab results. 04/16/25 13:44 04/16/25 13:57 Labs: Lab Results 04/16/25 04/16/25 04/16/25 Range/Units 13:44 13:57 16:00 WBC 19.0 H (4.5-10.0) K/mm3 RBC 5.49 (4.6-6.20) M/mm3 Hgb 16.1 (14.0-18.0) g/dL Hct 46.9 (42.0-52.0) % MCV 85.4 (80-100) fl MCH 29.3 (26-34) pg MCHC 34.3 (32-36) g/dl RDW 12.5 (11.5-14.5) % Plt Count 269 (150-375) k/mm3 MPV 10.4 (7.4-10.4) fl Immature Gran % (Auto) 0.3 (0-0.5) % Neut % (Auto) 79.4 H (45.5-73.1) % Lymph % (Auto) 15.0 L (18.3-44.2) % [place] % (Auto) 4.0 (2.6-8.5) % Eos % (Auto) 0.8 (0-4.4) % Baso % (Auto) 0.5 (0.2-1.2) % Lymph # (Auto) 2.85 (0.9-3.2) K/mm3 [place] # (Auto) 0.8 H (0.1-0.6) K/mm3 Eos # (Auto) 0.2 (0-0.3) K/mm3 Baso # (Auto) 0.1 (0.0-0.1) K/mm3 Abs Immat Gran (auto) 0.06 H (0.00-0.031) K/mm3 Absolute Neuts (auto) 15.1 H (1.3-6.7) K/mm3 Absolute Nucleated RBC 0.000 (0.0-0.012) K/mm3 Nucleated RBC % 0.0 (0.0-0.2) % Sodium 137 (137-145) mmol/L Potassium 3.9 (3.4-5.0) mmol/L Chloride 106 (98-107) mmol/L Carbon Dioxide 22 (22-30) mmol/L Anion Gap 9 (4-12) mmol/L BUN 16 (9-20) mg/dL Creatinine 1.02 1.10 (0.7-1.3) mg/dL Estim Creat Clear Calc 130 121 ml/min Estimated GFR > 60 > 60 (59 - ) Glucose 110 (65-110) mg/dL Lactic Acid 1.5 (0.7-2.0) mmol/L Calcium 9.3 (8.4-10.2) mg/dL Total Bilirubin 0.5 (0.2-1.3) mg/dL AST 42 (17-59) U/L ALT 63 H (6-50) U/L Alkaline Phosphatase 78 (38-126) U/L Total Protein 7.8 (6.3-8.2) g/dL Albumin 4.6 (3.5-5.1) g/dL Lipase 74 (23-300) U/L Urine Color Yellow (Yellow) Urine Appearance Clear (Clear) Urine pH 5.0 (5.0-9.0) Ur Specific [place] > 1.045 H (1.001-1.035) Urine Protein Negative (Negative) mg/dL Urine Glucose (UA) Negative (Negative) mg/dL Urine Ketones Negative (Negative) mg/dL Ur Blood (Man) Negative (Negative) Urine Nitrate Negative (Negative) Urine Bilirubin Negative (Negative) Urine Urobilinogen 0.2 (<2.0) mg/dL Leukocyte Esterase Rfl Negative (Negative) KARIE/UL Imaging Data Radiologist's impression: ITS Impressions Abdomen/Pelvis CT 04/16/25 16:05 IMPRESSION: 1. Subtle stranding about the fluid-filled distal appendix which is mildly dilated to 8 mm raising some concern for early acute appendicitis. Dr. Magana discussed these findings with Dr. Heller at 4:08 PM. Discharge Plan Discharge Clinical Impression: Acute appendicitis Qualifiers: Acute appendicitis type: with localized peritonitis Appendicitis gangrene presence: without gangrene Appendicitis perforation presence: without perforation Appendicitis abscess presence: without abscess Qualified Code(s): K35.30 - Acute appendicitis with localized peritonitis, without perforation or gangrene Patient Disposition: Still a Patient Condition: Stable Time of Disposition: 16:58
--- OUTSIDE RECORDS SUMMARY | 2025-04-16 16:40 | XMS_ITS | Clinical Summary ---
Author Organization [facility] Address [address] [place] [address] Phone Care Team Providers Care Screen Cutter And Trimmer Name Role Phone Provider, None Primary Care [...] Comments Blood Pressure 156/107 11/01/2020 3:24 PM LOCKSTITCH TOPSTITCHER Pulse 121 11/01/2020 3:23 PM LOCKSTITCH TOPSTITCHER Temperature 36.9 C (98.4 F) 11/01/2020 3:23 PM LOCKSTITCH TOPSTITCHER Respiratory Rate 20 11/01/2020 3:23 PM LOCKSTITCH TOPSTITCHER Oxygen Saturation 95% 11/01/2020 3:23 PM LOCKSTITCH TOPSTITCHER Inhaled Oxygen Concentration - - Weight 124.7 [...] ID:Not on file Type:Not on file Address: [place] [id number] [place] Care Teams Screen Cutter And Trimmer Relationship Specialty Start Date End Date Provider, None [place] PCP - General 01/16/17
--- OUTSIDE RECORDS SUMMARY | 2025-04-16 16:40 | XMS_ITS | Clinical Summary ---
Author Organization [facility] Address [address] [place] [address] Care Team Providers Care Soil Specialist Name Role Phone Esther Bey MD Primary Care Provider Source Comments [facility],non-owned Affiliates and Associated Physician Practices is amultiple site organization consisting of ambulatory clinics and hospital sitesin [place], [place], [place] and [place]. This disclosure is being madepursuant to the Care Everywhere program and may not contain all information available regarding this patient. 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
--- NOTE | 2025-04-16 16:53 | S_PTH ---
PATIENT: Gareth Lopez Jr. LOC: [facility] U#:[id number] AGE/SX: 24/M ROOM: RE04/16/[address]: Ruthie Negron MD : 2000 BED: DIS: 04/16/2025 SPEC #: [id number] RECD: 04/17/25 09:02 STATUS: ANGELITA RICHMOND #: [id number] PABLITO: 04/16/25 16:[address]: Ruthie Negron DEPT: [facility] Surgical RECD BY: Jennifer Green ENTERED: 04/17/25 09:02 SP TYPE: Surgical OTHR DR: UNKNOWN,DOCTOR Tissues: A - Appendix Procedures: Hematoxylin and Eosin Stain Gross and Microscopic Level 3
--- NOTE | 2025-04-16 17:09 | P.HP_ITS ---
H&P: HPI History of Present Illness Date/Time: 04/16/25 17:09 Chief Complaint: Acute appendicitis Narrative: 24-year-old male presenting to the emergency department complaining of severe lower abdominal pain, right greater than left. The patient reports the pain started last night and progressed this morning to wear was un tolerable. He reports the pain was initially periumbilical but is now mostly localized to the right lower quadrant. The patient reports decreased appetite and nausea since the symptoms started. The patient denies any previous similar episodes. Workup in the emergency department, including imaging, significant for acute appendicitis. Review of Systems Review of Systems: All systems reviewed & are unremarkable except as noted in HPI and below PMFSH Past Medical History Medical History Chronic mental illness Surgical History Surgical History No history of previous surgery Social History Social History Smoking status: Never smoker Gender identity (if verbalized by the patient): Male Meds Home Medications and Allergies Home Medications ?Medication ?Instructions ?Recorded ?Confirmed ?Type naproxen 500 mg tablet 500 mg PO BID #20 tabs 05/14/20 Rx cyclobenzaprine 10 mg tablet 10 mg PO TID PRN muscle spasm #10 09/30/21 Rx tabs ibuprofen 600 mg tablet (IBU) 600 mg PO Q6H PRN pain #20 tabs 09/30/21 Rx lamotrigine 100 mg tablet 09/30/21 09/30/21 History quetiapine 300 mg tablet 09/30/21 History sulfamethoxazole 800 1 tablet PO Q12H #14 tabs 09/30/21 Rx mg-trimethoprim 160 mg tablet (Bactrim DS) famotidine 20 mg tablet (Pepcid AC) 20 mg PO DAILY #14 tabs 03/19/22 Rx ibuprofen 600 mg tablet 600 mg PO TID PRN pain #14 tabs 03/19/22 Rx Allergies Allergy/AdvReac Type Severity Reaction Status Date / Time Penicillins Allergy Swelling Verified 04/16/25 16:55 of Lip/Tongue/Throat Vital Signs Vital Signs - 24 hr 04/16/25 12:43 04/16/25 12:58 04/16/25 12:59 Temperature 36.4 C Pulse Rate 87 85 82 Respiratory Rate 16 12 10 L Blood Pressure 135/78 143/91 H Pulse Oximetry 100 97 98 Oxygen Delivery 04/16/25 13:00 04/16/25 13:01 04/16/25 13:15 Temperature Pulse Rate 87 83 79 Respiratory Rate 11 L 19 14 Blood Pressure 143/91 H Pulse Oximetry 98 98 98 Oxygen Delivery 04/16/25 13:16 04/16/25 13:30 04/16/25 13:31 Temperature Pulse Rate 78 74 73 Respiratory Rate 13 12 14 Blood Pressure 133/78 134/67 Pulse Oximetry 100 100 99 Oxygen Delivery 04/16/25 13:45 04/16/25 13:46 04/16/25 13:47 Temperature Pulse Rate 92 89 83 Respiratory Rate 29 H 49 H 30 H Blood Pressure 148/114 H Pulse Oximetry Oxygen Delivery 04/16/25 14:06 04/16/25 14:07 04/16/25 14:15 Temperature Pulse Rate 78 82 76 Respiratory Rate 17 10 L 16 Blood Pressure 138/75 Pulse Oximetry 100 95 99 Oxygen Delivery 04/16/25 14:17 04/16/25 14:30 04/16/25 14:32 Temperature Pulse Rate 80 78 85 Respiratory Rate 14 19 23 H Blood Pressure 127/57 L 126/52 L Pulse Oximetry 100 100 98 Oxygen Delivery 04/16/25 14:45 04/16/25 14:47 04/16/25 15:24 Temperature Pulse Rate 80 81 91 Respiratory Rate 20 16 18 Blood Pressure 129/55 L Pulse Oximetry 100 100 Oxygen Delivery 04/16/25 15:26 04/16/25 15:30 04/16/25 15:31 Temperature Pulse Rate 78 80 78 Respiratory Rate 24 H 21 H 13 Blood Pressure 123/52 L 122/58 L Pulse Oximetry 99 100 100 Oxygen Delivery 04/16/25 15:45 04/16/25 15:46 04/16/25 16:48 Temperature 36.6 C Pulse Rate 75 70 Respiratory Rate 8 L 18 Blood Pressure 125/67 149/70 H Pulse Oximetry 99 100 98 Oxygen Delivery Room Air Exam Const: General: cooperative, no acute distress and uncomfortable HENMT: Head: normal to inspection, normocephalic and atraumatic Eyes: General: appearance normal, both eyes and all related structures Neck: Neck: normal visual inspection, full ROM and no lymphadenopathy Resp: Auscultation: clear to auscultation bilaterally Cardio: Rate: regular rate Rhythm: regular rhythm GI: Inspection: normal to inspection and obesity GI Palp: Yes abdominal tenderness, Yes Soft to palpation, Yes Tenderness to palpation present (GI), Yes Guarding due to palpation present (GI) and No Rigid due to palpation Skin: General skin exam: normal color and no rashes or lesions noted Extrem: General: normal to inspection and full ROM H&P: Results Labs Labs: Short CBC 04/16/25 Range/Units 13:44 WBC 19.0 H (4.5-10.0) K/mm3 Hgb 16.1 (14.0-18.0) g/dL Hct 46.9 (42.0-52.0) % Plt Count 269 (150-375) k/mm3 BMP 04/16/25 04/16/25 13:44 13:57 Sodium 137 Potassium 3.9 Chloride 106 Carbon Dioxide 22 BUN 16 Creatinine 1.02 1.10 Glucose 110 Calcium 9.3 Liver Function 04/16/25 Range/Units 13:44 Total Bilirubin 0.5 (0.2-1.3) mg/dL AST 42 (17-59) U/L ALT 63 H (6-50) U/L Alkaline Phosphatase 78 (38-126) U/L Albumin 4.6 (3.5-5.1) g/dL Urine 04/16/25 Range/Units 16:00 Urine Color Yellow (Yellow) Urine Appearance Clear (Clear) Urine pH 5.0 (5.0-9.0) Ur Specific [place] > 1.045 H (1.001-1.035) Urine Protein Negative (Negative) mg/dL Urine Glucose (UA) Negative (Negative) mg/dL Assessment and Plan Assessment and plan (1) Acute appendicitis: Qualifiers: Acute appendicitis type: with localized peritonitis Appendicitis abscess presence: without abscess Appendicitis gangrene presence: without gangrene Appendicitis perforation presence: without perforation Qualified Code(s): K35.30 - Acute appendicitis with localized peritonitis, without perforation or gangrene Code(s): K35.80 - Unspecified acute appendicitis Status: Acute Assessment and Plan: Will set up for emergent appendectomy, NPO, IV antibiotics
--- NOTE | 2025-04-16 17:11 | WPDANESEPPF ---
Anes - Initial Pre Proc Eval Procedure: Operation Date: 04/16/25 17:00 Proposed Procedures p Laparoscopic Appendectomy - Ruthie Negron MD Date/Time: 04/16/25 17:11 Surgeon: Ruthie Negron MD Pre Op Diagnosis: hernia? Patient Data Age: 24 Gender: M Height: 1.78 m Weight: 128 kg Last Vital Signs Temp 36.6 C 04/16/25 16:48 Pulse 70 04/16/25 16:48 Resp 18 04/16/25 16:48 BP 149/70 H 04/16/25 16:48 Pulse Ox 98 04/16/25 16:48 O2 Del Method Room Air 04/16/25 16:48 Allergies Allergy/AdvReac Type Severity Reaction Status Date / Time Penicillins Allergy Swelling Verified 04/16/25 16:55 of Lip/Tongue/Throat Home Medications ?Medication ?Instructions ?Recorded ?Confirmed ?Type naproxen 500 mg tablet 500 mg PO BID #20 tabs 05/14/20 Rx cyclobenzaprine 10 mg tablet 10 mg PO TID PRN muscle spasm #10 09/30/21 Rx tabs ibuprofen 600 mg tablet (IBU) 600 mg PO Q6H PRN pain #20 tabs 09/30/21 Rx lamotrigine 100 mg tablet 09/30/21 09/30/21 History quetiapine 300 mg tablet 09/30/21 History sulfamethoxazole 800 1 tablet PO Q12H #14 tabs 09/30/21 Rx mg-trimethoprim 160 mg tablet (Bactrim DS) famotidine 20 mg tablet (Pepcid AC) 20 mg PO DAILY #14 tabs 03/19/22 Rx ibuprofen 600 mg tablet 600 mg PO TID PRN pain #14 tabs 03/19/22 Rx Laboratory Tests 04/16/25 04/16/25 04/16/25 13:44 13:57 16:00 WBC 19.0 H K/mm3 (4.5-10.0) RBC 5.49 M/mm3 (4.6-6.20) Hgb 16.1 g/dL (14.0-18.0) Hct 46.9 % (42.0-52.0) MCV 85.4 fl (80-100) MCH 29.3 pg (26-34) MCHC 34.3 g/dl (32-36) RDW 12.5 % (11.5-14.5) Plt Count 269 k/mm3 (150-375) MPV 10.4 fl (7.4-10.4) Immature Gran % (Auto) 0.3 % (0-0.5) Neut % (Auto) 79.4 H % (45.5-73.1) Lymph % (Auto) 15.0 L % (18.3-44.2) [place] % (Auto) 4.0 % (2.6-8.5) Eos % (Auto) 0.8 % (0-4.4) Baso % (Auto) 0.5 % (0.2-1.2) Lymph # (Auto) 2.85 K/mm3 (0.9-3.2) [place] # (Auto) 0.8 H K/mm3 (0.1-0.6) Eos # (Auto) 0.2 K/mm3 (0-0.3) Baso # (Auto) 0.1 K/mm3 (0.0-0.1) Abs Immat Gran (auto) 0.06 H K/mm3 (0.00-0.031) Absolute Neuts (auto) 15.1 H K/mm3 (1.3-6.7) Absolute Nucleated RBC 0.000 K/mm3 (0.0-0.012) Nucleated RBC % 0.0 % (0.0-0.2) Sodium 137 mmol/L (137-145) Potassium 3.9 mmol/L (3.4-5.0) Chloride 106 mmol/L (98-107) Carbon Dioxide 22 mmol/L (22-30) Anion Gap 9 mmol/L (4-12) BUN 16 mg/dL (9-20) Creatinine 1.02 mg/dL 1.10 mg/dL (0.7-1.3) (0.8-1.5) Estim Creat Clear Calc 130 ml/min 121 ml/min Estimated GFR > 60 > 60 (59 - ) (59 - ) Glucose 110 mg/dL (65-110) Lactic Acid 1.5 mmol/L (0.7-2.0) Calcium 9.3 mg/dL (8.4-10.2) Total Bilirubin 0.5 mg/dL (0.2-1.3) AST 42 U/L (17-59) ALT 63 H U/L (6-50) Alkaline Phosphatase 78 U/L (38-126) Total Protein 7.8 g/dL (6.3-8.2) Albumin 4.6 g/dL (3.5-5.1) Lipase 74 U/L (23-300) Urine Color Yellow (Yellow) Urine Appearance Clear (Clear) Urine pH 5.0 (5.0-9.0) Ur Specific [place] > 1.045 H (1.001-1.035) Urine Protein Negative mg/dL (Negative) Urine Glucose (UA) Negative mg/dL (Negative) Urine Ketones Negative mg/dL (Negative) Ur Blood (Man) Negative (Negative) Urine Nitrate Negative (Negative) Urine Bilirubin Negative (Negative) Urine Urobilinogen 0.2 mg/dL (<2.0) Leukocyte Esterase Rfl Negative KARIE/UL (Negative) Patient hx anesthesia problems: none Family hx anesthesia problems: none Results Review: All pre-operative results and documents have been reviewed as part of the pre-operative evaluation. [facility] Past Medical History Medical History (Updated 04/16/25 @ 17:12 by Devendra Jensen MD) Morbid obesity Chronic mental illness Surgical History Surgical History (Updated 04/16/25 @ 17:12 by Devendra Jensen MD) Hx of cystoscopy Social History Social History Smoking status: Never smoker Gender identity (if verbalized by the patient): Male Anes - Eval Final PreProcedure Day of Procedure 04/16/25 17:11 Patient weight: morbidly obese Heart: regular rate and rhythm Lungs: clear to auscultation Airway: Mallampati scale class II Neurological: alert and oriented Last oral intake: >/= 8 hours ASA classification: III Emergent: no Anesthetic plan: proceed Anesthesia type and monitoring: general ETT and standard monitoring Results Review: All pre-operative results and documents have been reviewed as part of the pre-operative evaluation. Informed Consent: The patient's anesthetic plan and its attendant risks and benefits were discussed with the patient/family/POA. Questions were solicited and answers provided to the satisfaction of the patient/family/POA.
--- NOTE | 2025-04-16 17:13 | WPDHPUPDATE1 ---
History and Physical Update Update Date/Time: 04/16/25 17:13 History and Physical has been reviewed, including an updated exam of the patient. There are NO changes in the patient's condition. Risks, benefits, and alternatives have been discussed and questions answered. Patient agrees to proceed with procedure.
[2025-04-16] MEDS: LACTATED RINGERS 1,000 ML 30 ML IV CONT (17:16)
[2025-04-16] MEDS: metroNIDAZOLE 500 MG/ISO 100ML 500 MG/100 ML BAG 100 MG IVPB (17:16)
[2025-04-16] MEDS: CIPROFLOXACIN 400 MG/D5W 200ML 200 ML 200 MG IVPB (17:27)
[2025-04-16] MEDS: BUPIVACAINE/EPINEPHRINE 0.5% 30 ML VIAL INFILTRATE (17:42)
--- NOTE | 2025-04-16 17:56 | W.PM.PROC2 ---
Procedure Note - Detailed Date of Procedure 04/16/25 Pre-op Diagnosis Acute appendicitis Post-op Diagnosis Same Procedure Performed laparoscopic appendectomy Surgeon Ruthie Negron MD Anesthesia General Indications 24-year-old male presenting to the emergency department with severe right lower quadrant abdominal pain. Workup, including imaging significant for acute appendicitis. Findings Acute uncomplicated appendicitis Description of Procedure The patient was taken to the operating room and placed in the supine position. After adequate induction of general anesthesia, the patient was prepped and draped in the normal sterile fashion. A time-out was then done to verify the patient's identity, as well as the procedure being performed. I began by making a 5 mm incision in the infraumbilical region, through this a Veress needle was placed in the peritoneal cavity. CO2 gas was then insufflated and after adequate pneumoperitoneum was achieved the Veress needle was removed. Then placed a 5 mm Optiview trocar under direct visualization into the peritoneal cavity. I then insufflated through this trocar site and the endoscope was placed into the trocar. Under direct visualization, placed 2 further 5 mm suprapubic port as well as an additional 12 mm port in the left lower abdomen. At this point identified the cecum, I retracted the cecum both medially and superiorly allowing me to expose the appendix. The appendix was noted to be very dilated and inflamed. The appendix was noted to be very adherent to the right lateral sidewall as well as the ileum. I was able to bluntly dissect the appendix from these adhesions. I then was able to locate the base of the appendix with the cecum. I created a window with the [place] dissector between the appendix itself and the mesoappendix. I then transected the mesoappendix with a white vascular staple load. The Endo-ELÍAS was then reloaded with a blue staple load and I transected the base of the appendix. Of note, 2 blue staple loads were used to transect the very thickened appendix. Once the specimen was completely detached, an endo-pouch was placed into the 12 mm port site and the specimen was removed through the endo-pouch. The appendiceal specimen will be sent to pathology for further review. I then copiously irrigated the right lower quadrant. Hemostasis was noted at both staple lines no other pathology was seen in this area. I then moved the camera to the suprapubic port to check our its port of entry. No iatrogenic injury or other pathology was noted in the upper abdomen. I then closed the 12 mm port site with a Pankaj code and 0 Vicryl suture under direct visualization. At this point, the abdomen was desufflated and all ports were removed. All port sites were closed with 4 Monocryl subcuticular suture. Dermabond was placed on all wounds. The patient tolerated the procedure well and was extubated in the operating room postop. He will be sent to the recovery room in stable condition. Estimated Blood Loss 10 Drains No Packing No Pathology Yes Complications No immediate complications Condition Stable Disposition PACU [facility] Billing Surgery - Charge Forward: Surgery Billing
[2025-04-16] MEDS: oxyCODONE HCL (*CRX) 5 MG TAB IR PO (19:17)
== END 2025-04-16 20:00 | disposition home or self-care (01) ==
LOC: ANHED 16:34 → ANHSURGERY 16:39
PROVIDERS: Emergency Provider Family Medicine; Visit Provider Surgery
PROC: 0DTJ4ZZ Resection of Appendix, Percutaneous Endoscopic Approach (ICD-10-PCS; CPT 44970; principal; 2025-04-16 17:00)
DX: K35.80 Unspecified acute appendicitis (principal); E66.01 Morbid (severe) obesity due to excess calories; Z68.41 Body mass index [BMI] 40.0-44.9, adult
CPT/HCPCS: 44970; 36415; 74177; 80053; 81003; 83605; 83690; 85025; 88304; 96374; 96375; 99285; A9270; J0330; J0744; J1100; J1171; J1836; J1885; J2003; J2250; J2270; J2405; J2704; J3010; J7030; J7120; Q9967